=== PATIENT | female | born 1935 | race Caucasian/White ===

== ENCOUNTER 2017-04-19 08:12 | Emergency (ER) | payer MEDICARE, BC ==
[2017-04-19] MEDS ORDERED: 0.9 % SODIUM CHLORIDE 1,000 ML BAG IV ONE (08:51)
[2017-04-19] MEDS ORDERED: ONDANSETRON HCL IV 4 MG/2 ML VIAL IVP ONE (08:52)
--- NOTE | 2017-04-19 08:56 | Emergency Department Record ---
History of Present Illness - General Chief Complaint: Abdominal Pain Stated Complaint: ABD PAIN Time Seen by Provider: 04/19/17 08:51 Source: Patient, Family Mode of Arrival: Ambulatory Limitations: No limitations - History of Present Illness Initial Comments: 81 yo female presents with abdominal bloating, pain, mucous like stools. She states she has a history of diverticulosis with prior episodes of diverticulitis. She has a history of liver transplant in early 2003. She moved from [place] in November and has not seen a doctor in [place] yet. Her [place] physician has a standing order for Cipro for symptoms like this. She took a 10 day course but is not improving. No fevers. No blood in the stools. She has a new PCP appointment in late April as well as GI in April. MD Complaint: Abdominal pain Onset/Timin -: Days(s) Location: Diffuse Radiation: None Migration to: No migration Severity: Moderate Quality: Aching, Cramping Consistency: Constant Improves With: Nothing Worsens With: Nothing Context: Other Associated Symptoms: Nausea - Related Data Patient : No Home Medications Medication Instructions Recorded Confirmed Last Taken Amlodipine Besylate/Benazepril 5 mg PO DAILY 04/19/17 04/19/17 Unknown [Amlodipine-Benazepril 5-20 mg] Levothyroxine Sodium 25 mcg PO DAILY 04/19/17 04/19/17 Unknown Metoprolol Succinate [Toprol Xl] 25 mg PO DAILY 04/19/17 04/19/17 Unknown Prednisone [Prednisone] 2.5 mg PO DAILY 04/19/17 04/19/17 Unknown Tacrolimus [Prograf] 1 mg PO TID 04/19/17 04/19/17 Unknown Allergies Allergy/AdvReac Type Severity Reaction Status Date / Time ibuprofen [From Motrin] Allergy HYPERSENSIT Verified 04/19/17 08:32 IVITY NSAIDS (Non-Steroidal Allergy HYPERSENSIT Verified 04/19/17 08:32 Anti-Inflamma IVITY Travel Screening - Travel/Exposure Within Last 30 Days Have you traveled within the last 30 days?: No Review of Systems Constitutional: Denies: Chills, Fever, Malaise, Weakness Eyes: Denies: Eye discharge, Eye pain, Photophobia, Vision change ENT: Denies: Congestion, Throat pain Respiratory: Reports: Cough. Denies: Dyspnea, Hemoptysis, Stridor, Wheezes Cardiovascular: Denies: Chest pain, Palpitations, Syncope Endocrine: Denies: Fatigue, Polydipsia, Polyuria Gastrointestinal: Reports: Abdominal pain (bloating feeling), Diarrhea (mucous like stools that are improving), Nausea. Denies: Vomiting Genitourinary: Denies: Dysuria, Hematuria, Incontinence, Retention, Urgency Musculoskeletal: Denies: Arthralgia, Back pain, Joint swelling, Myalgia Skin: Denies: Bruising, Change in color, Rash Neurological: Denies: Headache, Numbness, Weakness Psychiatric: Denies: Anxiety Hematological/Lymphatic: Denies: Blood Clots, Easy bleeding, Easy bruising, Swollen glands Past Medical History - SOCIAL HISTORY Smoking Status: Never smoker Alcohol Use: None Drug Use: None - RESPIRATORY Hx Respiratory Disorders: No - CARDIOVASCULAR Hx Cardio Disorders: No - NEURO Hx Neuro Disorders: No - GI Hx GI Disorders: Yes Hx Diverticulitis: Yes Hx Hiatal Hernia: Yes Hx Liver Disease: Yes (transplant) - Hx Genitourinary Disorders: No - ENDOCRINE Hx Endocrine Disorders: Yes Hx Thyroid Disease: Yes - MUSCULOSKELETAL Hx Musculoskeletal Disorders: Yes Hx Arthritis: Yes - PSYCH Hx Psych Problems: No - HEMATOLOGY/ONCOLOGY Hx Hematology/Oncology Disorders: Yes Hx Cancer: Yes (cancer) Hx Chemotherapy: No Hx Radiation Therapy: No Family Medical History Any Significant Family History?: No Physical Exam - General General Appearance: Alert, Oriented x3, Cooperative, No acute distress Limitations: No limitations - Head Head exam: Atraumatic, Normal inspection - Eye Eye exam: Normal appearance. negative: Conjunctival injection, Scleral icterus - ENT ENT exam: Normal exam, Mucous membranes moist Ear exam: Normal external inspection Nasal Exam: Normal inspection Mouth exam: Normal external inspection Teeth exam: Normal inspection Throat exam: Normal inspection - Neck Neck exam: Normal inspection, Full ROM. negative: Tenderness - Respiratory Respiratory exam: Normal lung sounds bilaterally. negative: Respiratory distress - Cardiovascular Cardiovascular Exam: Regular rate, Normal rhythm, Normal heart sounds Peripheral Pulses: 2+: Radial (R), Radial (L) - GI/Abdominal GI/Abdominal exam: Soft, Normal bowel sounds. negative: Distended, Guarding, Rebound, Rigid, Tenderness - Rectal Rectal exam: Deferred - exam: Deferred - Extremities Extremities exam: Normal inspection, Full ROM, Normal capillary refill. negative: Tenderness - Back Back exam: Reports: Normal inspection, Full ROM. Denies: Muscle spasm, Rash noted, Tenderness - Neurological Neurological exam: Alert, Normal gait, Oriented X3 - Psychiatric Psychiatric exam: Normal affect, Normal mood - Skin Skin exam: Dry, Intact, Normal color, Warm Course Vital Signs 04/19/17 08:22 Temperature 98.1 F Pulse Rate 78 Respiratory 20 Rate Blood Pressure 162/97 Pulse Ox 97 - Reevaluation(s) Reevaluation #1: 04/19/17 09:23 No acute changes on the CBC, CMP or Lipase 04/19/17 10:40 No acute changes on the UA The patient is transported for CT due to [facility] CT not available 04/19/17 12:[address] scan report was reviewed: Impression prominent varices suggest portal HTN , mild splenomegaly, Mild to Moderate right HN without obstruction or stone, bladder distended. NO diverticulitis. 04/19/17 13:10 The report was given to the patient She will be referred to urology for the right sided findings. We discussed follow up and reasons to return sooner Medical Decision Making - Lab Data Result diagrams: 04/19/17 08:05 04/19/17 08:05 Disposition Disposition: Discharge Disposition: Home, Self-Care Condition: (1) Good Instructions: Hydronephrosis (ED) Additional Instructions: Return to the ER if you have fever, pain, or vomiting You are being referred to Dr Izaguirre of urology for the right sided hydronephrosis on the CT scan Referrals: SALMA IZAGUIRRE M.D. [MEDICAL DOCTOR] - [facility] Specialty Clin[facility] [Provider Group] Forms: Patient Portal Access Time of Disposition: 13:14 Quality - Quality Measures Quality Measures: N/A - Blood Pressure Screening Does Patient Have Any of the Following: Active Dx of HTN Blood Pressure Classification: Hypertensive Reading Systolic Measurement: 162 Diastolic Measurement: 97 Screening for High Blood Pressure: Patient Exclusion, Hx of HTN [G9744]
[2017-04-19 08:59] LABS: BASO % 0.2 % (0-6); EOS % 2.5 % (0-6); GRAN % 68.6 % (47-80); HEMATOCRIT 40.2 % (35.0-47.0); HEMOGLOBIN 13.1 gm/dl (11.6-16.0); LYMPH % 18.1 % (16-45); MEAN CELL VOLUME 83.1 fl (81-97); MEAN CORPUSCULAR HEMOGLOBIN 27.1 pg (27-33); MEAN CORPUSCULAR HGB CONC 32.6 g/dl (32-36); MEAN PLATELET VOLUME 9.6 fl (7.4-10.4); MONO % 10.6 % (0-9); PLATELET COUNT 143 K/uL (130-400); RED BLOOD COUNT 4.84 M/uL (3.80-5.40); RED CELL DISTRIBUTION WIDTH 14.1 % (11.5-14.5); WHITE BLOOD COUNT W/O DIFF 5.3 K/uL (4.2-12.2)
[2017-04-19 09:22] LABS: ALBUMIN 4.6 g/dL (4.0-5.0); ALKALINE PHOSPHATASE 67 U/L (35-104); ALT/SGPT 17 U/L (<33); AST/SGOT 21 U/L (10.0-35.0); BILIRUBIN,DIRECT < 0.2 mg/dL (0-0.3); BLOOD UREA NITROGEN 28 mg/dL (8-23); CREATININE 0.8 mg/dL (0.5-0.9); EST GLOMERULAR FILTRATION RATE > 60 mL/min; GLUCOSE,RANDOM 121 mg/dL (74-109); LIPASE 23 U/L (13-60); TOTAL PROTEIN 7.5 g/dL (6.6-8.7)
[2017-04-19 09:33] LABS: PARTIAL THROMBOPLASTIN TIME 29.6 SECONDS (24.5-39.1); PROTHROMBIN TIME (PATIENT) 10.6 SECONDS (9.5-12.1)
[2017-04-19 10:08] LABS: URINE APPEARANCE CLEAR; URINE BILIRUBIN NEGATIVE (NEGATIVE); URINE BLOOD TRACE-I (NEGATIVE); URINE COLOR YELLOW; URINE GLUCOSE (UA) NEGATIVE (NEGATIVE); URINE KETONE NEGATIVE (NEGATIVE); URINE LEUKOCYTE ESTERASE NEGATIVE (NEGATIVE); URINE NITRITE NEGATIVE (NEGATIVE); URINE PROTEIN NEGATIVE (NEGATIVE); URINE UROBILINOGEN 0.2 E.U./dL (0.20 - 1.00)
[2017-04-19 10:20] LABS: URINE RBC 0 - 3 (NONE SEEN)
[2017-04-19 10:21] LABS: URINE BACTERIA NONE SEEN; URINE EPITHELIAL CELLS 0 - 2 (FEW); URINE WBC 0 - 2 (0-2/hpf)
== END 2017-04-19 13:48 | disposition home or self-care (01) ==
LOC: ER 08:12
DX: N13.30 Unspecified hydronephrosis (principal); R14.0 Abdominal distension (gaseous); R11.0 Nausea; Z94.4 Liver transplant status
CPT/HCPCS: 80048; 80076; 81001; 83690; 85025; 85610; 85730; 96374; 99284; J2405; J7030

== ENCOUNTER 2017-12-16 09:12 | Emergency (ER) | payer MEDICARE, BC ==
--- NOTE | 2017-12-16 09:22 | Emergency Department Record ---
History of Present Illness - General Stated Complaint: FELL BACK PAIN UPPER Time Seen by Provider: 12/16/17 09:14 Source: Patient Mode of Arrival: Ambulatory Limitations: No limitations - History of Present Illness Initial Comments: 82 yo female presents after a fall. She slipped on one step leaving her house. The injury occurred one hour ago. She hit her mid upper back. No head injury , no neck pain, abdominal pain, extremity pain. She has pain with taking a deep breath. No anti-coagulants. She states has has a Motrin allergy and she does not take Tylenol due to a 2004 liver transplant. She is declining pain medication at this time. Dr Siu is her PCP and Dr Yao is her GI. The transplant was in [place]. She no longer sees that doctor. MD Complaint: Fall -: Hour(s) (1) Fall From: Down stairs (#) (1) When Fall Occurred: 1 hour [employer] Fall Witnessed: No Place Fall Occurred: Home Loss of Consciousness: None Prolonged Down Time?: No Symptoms Prior to Fall: None Location: Back Quality: Aching Context: Other Associated Symptoms: Shortness of breath (Hurts to breath) - [place] Coma Scale Eye Response: (4) Open spontaneously Motor Response: (6) Obeys commands Verbal Response: (5) Oriented [place] Total: 15 - Related Data Allergies Allergy/AdvReac Type Severity Reaction Status Date / Time ibuprofen [From Motrin] Allergy HYPERSENSIT Verified 04/19/17 08:32 IVITY NSAIDS (Non-Steroidal Allergy HYPERSENSIT Verified 04/19/17 08:32 Anti-Inflamma IVITY Review of Systems Constitutional: Denies: Chills, Fever, Malaise, Weakness Eyes: Denies: Eye discharge ENT: Denies: Congestion, Throat pain Respiratory: Denies: Cough Cardiovascular: Reports: Dyspnea on exertion. Denies: Chest pain, Palpitations , Syncope Endocrine: Denies: Fatigue, Polydipsia, Polyuria Gastrointestinal: Denies: Abdominal pain, Diarrhea, Nausea, Vomiting Genitourinary: Denies: Dysuria Musculoskeletal: Reports: Back pain. Denies: Arthralgia, Joint swelling, Myalgia, Neck pain Skin: Denies: Bruising, Change in color, Rash Neurological: Denies: Headache Psychiatric: Denies: Anxiety Hematological/Lymphatic: Denies: Easy bleeding, Easy bruising Past Medical History - SOCIAL HISTORY Smoking Status: Never smoker - RESPIRATORY Hx Respiratory Disorders: No - CARDIOVASCULAR Hx Cardio Disorders: No - NEURO Hx Neuro Disorders: No - GI Hx GI Disorders: Yes Hx Diverticulitis: Yes Hx Hiatal Hernia: Yes Hx Liver Disease: Yes (transplant) - Hx Genitourinary Disorders: No - ENDOCRINE Hx Endocrine Disorders: Yes Hx Thyroid Disease: Yes - MUSCULOSKELETAL Hx Musculoskeletal Disorders: Yes Hx Arthritis: Yes - PSYCH Hx Psych Problems: No - HEMATOLOGY/ONCOLOGY Hx Hematology/Oncology Disorders: Yes Hx Cancer: Yes (cancer) Hx Chemotherapy: No Hx Radiation Therapy: No Physical Exam - General General Appearance: Alert, Oriented x3, Cooperative, No acute distress Limitations: No limitations - Head Head exam: Atraumatic, Normocephalic, Normal inspection - Eye Eye exam: Normal appearance, PERRL. negative: Conjunctival injection, Scleral icterus - ENT ENT exam: Normal exam, Mucous membranes moist, Normal orophraynx. negative: Mucous membranes dry Ear exam: Normal external inspection Nasal Exam: Normal inspection Mouth exam: Normal external inspection Throat exam: Normal inspection - Neck Neck exam: Normal inspection, Full ROM. negative: Lymphadenopathy, Meningismus , Tenderness - Respiratory Respiratory exam: Normal lung sounds bilaterally, Chest wall tenderness. negative: Accessory muscle use, Decreased breath sounds, Prolonged expiratory, Rales, Respiratory distress, Rhonchi, Wheezes - Cardiovascular Cardiovascular Exam: Regular rate, Normal rhythm, Normal heart sounds Peripheral Pulses: 2+: Radial (R), Radial (L) - GI/Abdominal GI/Abdominal exam: Soft. negative: Tenderness - Rectal Rectal exam: Deferred - exam: Deferred - Extremities Extremities exam: Normal inspection, Full ROM, Normal capillary refill. negative: Calf tenderness, Joint swelling, Pedal edema, Tenderness Image of Full Body: 1 - tenderness to palpation, normal inspection - Back Back exam: Reports: Normal inspection. Denies: CVA tenderness (R), CVA tenderness (L) - Neurological Neurological exam: Alert, Oriented X3 - Psychiatric Psychiatric exam: Normal affect, Normal mood. negative: Agitated, Anxious - Skin Skin exam: Dry, Intact, Normal color, Warm Course - Reevaluation(s) Reevaluation #1: The vitals were reviewed. No tachycardia or hypoxia. The patient declined pain medication at this time She did ambulate without limitation into the ED. She does not appear limited by pain with movement or breathing. 12/16/17 09:27 12/16/17 09:29 EKG EKG #1: 0933 Rate: 65 Rhythm: sinus [place]: normal Intervals: normal ST segments: normal Normal EKG Prior: none 12/16/17 09:36 12/16/17 09:57 No acute significant changes on the CBC 12/16/17 10:17 The CMP did not have any significant abnormalities. 12/16/17 10:[address] scan was read an age indeterminate mild compression fracture of T4 with 2mm of retropusion of the superior posterior aspect. 12/16/17 10:55 The patient was informed on the CT results of mild compression with 2mm retropulsed area. Her pain is still mild and declines pain medication. She is unaware of prior compression fractures. I informed her this then could be new. I recommended calling for spine surgery follow up, possible transfer or admission. She declined. She states her pain is mild and does not want to go to a spine doctor at this time. I recommended calling her PCP at least to discuss the case first. She does agree to this. 12/16/17 11:08 I discussed the case with Dr Siu. He states she has a history of all normal hepatic function and she may take Tylenol for pain. The patient was informed. Dr Siu refers to Dr Baptiste for spine. The patient agrees to allow me to contact him as well. 12/16/17 11:11 12/16/17 11:31 The patient again stresses under NO circumstances will she be admitted, transferred or plans other that DC home now. I again explained her CT and that I recommend talking with spine surgery. She is unwilling to wait any longer. She understands risks of nerve injury, worse or uncontrolled pain. I discussed signing out AMA given my recommendations without followup established prior to her wish to leave. 12/16/17 11:[address] copy was provided. She was informed she may return anytime for evaluation. She is to call Dr Siu tomorrow. She was given Dr Baptiste's information. I will speak to him when he calls back. The patient has had all her questions answered and she still as determined to sign out AMA. Medical Decision Making - Lab Data Result diagrams: 12/16/17 09:37 12/16/17 09:37 Disposition Disposition: Other Clinical Impression: Compression fracture of body of thoracic vertebra Contusion, back Qualifiers: Encounter type: initial encounter Laterality: unspecified laterality Qualified Code(s): S20.229A - Contusion of unspecified back wall of thorax, initial encounter Disposition: Against Medical Advice Condition: (1) Good Instructions: Vertebral Compression Fracture (ED), Against Medical Advice (ED) Additional Instructions: Call your family doctor today. Call to schedule the next available appointment for a recheck of your back Return to ED if your symptoms worsen or if you have any new concerns. Review the final Emergency Record and test results with your doctor on follow up Take a copy of your CT scan with you to your appointments. Referrals: BRANDI BAPTISTE [DOCTOR OF OSTEOPATH] - Forms: Patient Portal Access Time of Disposition: 11:12 Quality - Quality Measures Quality Measures: N/A - Blood Pressure Screening Does Patient Have Any of the Following: No Blood Pressure Classification: Pre-Hypertensive BP Reading Systolic Measurement: 185 Diastolic Measurement: 84 Screening for High Blood Pressure: < Pre-Hypertensive BP, F/U Documented > [ G8950] Pre-Hypertensive Follow-up Interventions: Referral to alternative/primary care provider.
[2017-12-16 09:42] LABS: BASO % 0.2 % (0-6); EOS % 2.1 % (0-6); GRAN % 65.7 % (47-80); HEMATOCRIT 40.6 % (35.0-47.0); HEMOGLOBIN 12.9 gm/dl (11.6-16.0); MEAN CELL VOLUME 85.5 fl (81-97); MEAN CORPUSCULAR HEMOGLOBIN 27.2 pg (27-33); MEAN CORPUSCULAR HGB CONC 31.8 g/dl (32-36); MEAN PLATELET VOLUME 9.5 fl (7.4-10.4); PLATELET COUNT 145 K/uL (130-400); RED BLOOD COUNT 4.75 M/uL (3.80-5.40); RED CELL DISTRIBUTION WIDTH 13.8 % (11.5-14.5); WHITE BLOOD COUNT W/O DIFF 5.3 K/uL (4.2-12.2)
[2017-12-16 09:52] LABS: BLOOD UREA NITROGEN 30 mg/dL (8-23); CREATININE 0.9 mg/dL (0.5-0.9); EST GLOMERULAR FILTRATION RATE > 60 mL/min
[2017-12-16 09:53] LABS: TOTAL PROTEIN 7.1 g/dL (6.6-8.7)
[2017-12-16 09:55] LABS: GLUCOSE,RANDOM 127 mg/dL (74-109)
[2017-12-16 09:58] LABS: ALB/GLOB RATIO 1.7 (1.1-1.8); ALBUMIN 4.5 g/dL (4.0-5.0); ALKALINE PHOSPHATASE 63 U/L (35-104); ALT/SGPT 13 U/L (<33); AST/SGOT 17 U/L (10.0-35.0)
[2017-12-16] MEDS ORDERED: ACETAMINOPHEN 500 MG TABLET PO ONE (11:09)
--- NOTE | 2017-12-17 12:34 | CT SCAN REPORT ---
EXAM: CT SCAN OF THE CHEST WITHOUT CONTRAST WITH POST PROCESSING HISTORY: PATIENT SLIPPED AND FELL ON DECK, HITTING MID BACK WITH MID BACK PAIN. TECHNIQUE: Axial CT scan of the chest was performed without IV contrast. Post processing on an independent workstation was performed with multiple 3D volume rendered as well as 2D multiplanar reformatted series obtained. FINDINGS: No pneumothorax is evident. There is some minor dependent atelectasis in the lungs posteriorly. There is some small nodules bilaterally in the thyroid measuring about 6.6 mm in size on the right and probably about 11 mm in size on the left. Correlation with physical exam suggested and a follow-up nonemergent thyroid ultrasound might be useful for further assessment. 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 Some coronary artery calcification is seen. No pleural or pericardial effusion evident. Postop cholecystectomy. There are also a couple surgical clips along the inferior aspect of the right side of the heart. There is also a history of liver transplant and this is probably related to the transplant with a prominent vessel seen in this region also likely related to the transplant. Small hiatal hernia. There are some small pleural plaques in the right apical region containing some calcification. This is nonspecific although can be seen with prior asbestos exposure. There is mild compression of the body of T4. There is no associated paraspinal hematoma and the age of this is uncertain. Comparison with any prior CT scans or even chest or spine plain film x-rays that include the thoracic spine particularly in the lateral projection would be useful in this regard. Very slight retropulsion of the posterior margin of the T4 vertebra by only approximately 2 mm. IMPRESSION: 1. NO PNEUMOTHORAX OR PULMONARY CONTUSION IDENTIFIED. MINOR DEPENDENT ATELECTASIS POSTERIORLY IN THE LUNGS. 2. CORONARY ARTERY CALCIFICATION. 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 3. THERE IS MILD COMPRESSION IN THE BODY OF T4 WITH ABOUT 2 MM OF RETROPULSION OF THE POSTERIOR MARGIN IN THE BODY OF T4. THIS IS OF UNCERTAIN AGE WITH NO OBVIOUS ASSOCIATED PARASPINAL HEMATOMA TODAY. 4. BILATERAL THYROID NODULES ABOUT 11 MM IN SIZE ON THE LEFT AND 6.6 MM ON THE RIGHT. FOLLOW-UP THYROID ULTRASOUND MIGHT BE USEFUL. 5. POSTOP CHOLECYSTECTOMY. HISTORY OF LIVER TRANSPLANT WELL WITH SURGICAL CLIPS ALONG THE INFERIOR ASPECT OF THE HEART ON THE RIGHT PROBABLY RELATED TO THE TRANSPLANT. JOB NUMBER: [id number] [facility]
== END 2017-12-16 11:43 | disposition left against medical advice (07) ==
LOC: ER 09:12
DX: S22.049A Unspecified fracture of fourth thoracic vertebra, initial encounter for closed fracture (principal); S20.229A Contusion of unspecified back wall of thorax, initial encounter; R07.89 Other chest pain; R06.02 Shortness of breath; W01.198A Fall on same level from slipping, tripping and stumbling with subsequent striking against other object, initial encounter; Y92.009 Unspecified place in unspecified non-institutional (private) residence as the place of occurrence of the external cause; Z94.4 Liver transplant status
CPT/HCPCS: 71250; 80053; 85025; 99284

== ENCOUNTER 2018-03-23 00:58 | Emergency (ER) | payer MEDICARE, BC ==
[2018-03-23] MEDS ORDERED: MORPHINE SULFATE 10 MG/ML VIAL IVP ONE (01:04)
[2018-03-23] MEDS ORDERED: ONDANSETRON HCL IV 4 MG/2 ML VIAL IVP ONE (01:04)
--- NOTE | 2018-03-23 01:09 | Emergency Department Record ---
History of Present Illness - General Chief Complaint: Abdominal Pain Stated Complaint: ABD PAIN Time Seen by Provider: 03/23/18 01:04 Source: Patient Mode of Arrival: Ambulatory Limitations: No limitations - History of Present Illness Initial Comments: 82 yo female presents to ED for evaluation of diffuse abdominal pain symtpoms. Patient reports a history of diverticulitis, was recently started on Cipro by her PCP for a flare-up that began 1 week ago. Patient reports using numerous laxatives and stool softeners to "clean herself out", reports increased pain and distention tonight. Patient also reports a history of liver transplantation in 2003 in [place], denies complications following her transplant. MD Complaint: Abdominal pain Onset/Timin -: Days(s) Location: Diffuse Radiation: None Severity: Moderate Quality: Aching Consistency: Constant Improves With: Nothing Worsens With: Nothing Associated Symptoms: Constipation - Related Data Patient : No Allergies Allergy/AdvReac Type Severity Reaction Status Date / Time ibuprofen [From Motrin] Allergy HYPERSENSIT Verified 04/19/17 08:32 IVITY NSAIDS (Non-Steroidal Allergy HYPERSENSIT Verified 04/19/17 08:32 Anti-Inflamma IVITY Review of Systems Constitutional: Denies: Chills, Fever, Malaise, Night sweats Eyes: Denies: Eye discharge, Eye pain ENT: Denies: Congestion, Ear pain, Epistaxis Respiratory: Denies: Cough, Dyspnea Cardiovascular: Denies: Chest pain, Dyspnea on exertion Endocrine: Denies: Fatigue, Heat or cold intolerance Gastrointestinal: Reports: Abdominal pain, Nausea. Denies: Vomiting Genitourinary: Denies: Incontinence, Retention Musculoskeletal: Denies: Arthralgia, Back pain Skin: Denies: Bruising, Change in color, Change in hair/nails Neurological: Denies: Abnormal gait, Confusion, Headache, Seizure Psychiatric: Denies: Anxiety Hematological/Lymphatic: Denies: Anemia, Blood Clots Past Medical History - SOCIAL HISTORY Smoking Status: Never smoker - RESPIRATORY Hx Respiratory Disorders: No - CARDIOVASCULAR Hx Cardio Disorders: No - NEURO Hx Neuro Disorders: No - GI Hx GI Disorders: Yes Hx Diverticulitis: Yes Hx Hiatal Hernia: Yes Hx Liver Disease: Yes (transplant) - Hx Genitourinary Disorders: No - ENDOCRINE Hx Endocrine Disorders: Yes Hx Thyroid Disease: Yes - MUSCULOSKELETAL Hx Musculoskeletal Disorders: Yes Hx Arthritis: Yes - PSYCH Hx Psych Problems: No - HEMATOLOGY/ONCOLOGY Hx Hematology/Oncology Disorders: Yes Hx Cancer: Yes (cancer) Hx Chemotherapy: No Hx Radiation Therapy: No Physical Exam - General General Appearance: Alert, Oriented x3, Cooperative, Moderate distress Limitations: No limitations - Head Head exam: Atraumatic, Normocephalic, Normal inspection Head exam detail: negative: Abrasion, Contusion, Ro's sign, General tenderness, Hematoma, Laceration - Eye Eye exam: Normal appearance. negative: Conjunctival injection, Periorbital swelling, Periorbital tenderness, Scleral icterus - ENT Ear exam: negative: Auricular hematoma, Auricular trauma Nasal Exam: negative: Active bleeding, Discharge, Dried blood, Foreign body Mouth exam: negative: Drooling, Laceration, Muffled voice, Tongue elevation - Neck Neck exam: Normal inspection. negative: Meningismus, Tenderness - Respiratory Respiratory exam: Normal lung sounds bilaterally. negative: Rales, Respiratory distress, Rhonchi, Stridor - Cardiovascular Cardiovascular Exam: Regular rate, Normal rhythm, Normal heart sounds - GI/Abdominal GI/Abdominal exam: Soft, Distended, Tenderness (Diffuse TTP, distention present. ). negative: Rebound, Rigid - Rectal Rectal exam: Deferred - exam: Deferred - Extremities Extremities exam: Normal inspection. negative: Pedal edema, Tenderness - Back Back exam: Denies: CVA tenderness (R), CVA tenderness (L) - Neurological Neurological exam: Alert, Normal gait, Oriented X3 - Psychiatric Psychiatric exam: Normal affect, Normal mood - Skin Skin exam: Normal color. 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 Reevaluation #3: 03/23/18 03:13 2nd call placed to [facility], they have paged general surgery x 2, will try once more before contacting colo-rectal surgery for consultation. Reevaluation #4: 03/23/18 03:45 Case was discussed with Dr. Garland ([place]-rectal specialist at [facility]), recommends transfer to transplant center. [facility], [facility] Will initiate transfer. Medical Decision Making - Lab Data Result diagrams: 03/23/18 01:10 03/23/18 01:10 Disposition Disposition: Transfer Clinical Impression: SBO (small bowel obstruction), Colonic mass Disposition: Acute Care Hospital Transfer Transfer To: [facility] Reason For Transfer: Surgical consultation Accepting Physician: Busschots Time Discussed w/Accepting Physician: 03:46 Condition: (2) Stable Forms: Patient Portal Access Time of Disposition: 03:46 Quality - Quality Measures Quality Measures: N/A - Blood Pressure Screening Does Patient Have Any of the Following: No Blood Pressure Classification: Pre-Hypertensive BP Reading Systolic Measurement: 122 Diastolic Measurement: 61 Screening for High Blood Pressure: < Pre-Hypertensive BP, F/U Documented > [ G8950] Pre-Hypertensive Follow-up Interventions: Referral to alternative/primary care provider.
[2018-03-23 01:18] LABS: BASO % 0.3 % (0-6); EOS % 1.1 % (0-6); GRAN % 71.2 % (47-80); HEMATOCRIT 41.5 % (35.0-47.0); HEMOGLOBIN 13.3 gm/dl (11.6-16.0); LYMPH % 16.9 % (16-45); MEAN CELL VOLUME 83.5 fl (81-97); MEAN CORPUSCULAR HEMOGLOBIN 26.8 pg (27-33); MONO % 10.5 % (0-9); PLATELET COUNT 189 K/uL (130-400); RED BLOOD COUNT 4.97 M/uL (3.80-5.40); RED CELL DISTRIBUTION WIDTH 13.6 % (11.5-14.5); WHITE BLOOD COUNT W/O DIFF 8.9 K/uL (4.2-12.2)
[2018-03-23 01:29] LABS: BILIRUBIN,TOTAL 0.5 mg/dL (0.2-1.0); CREATININE 1.2 mg/dL (0.5-0.9); TOTAL PROTEIN 7.7 g/dL (6.6-8.7)
[2018-03-23 01:34] LABS: ALB/GLOB RATIO 1.5 (1.1-1.8); ALBUMIN 4.6 g/dL (4.0-5.0)
[2018-03-23] MEDS ORDERED: 0.9 % SODIUM CHLORIDE 1000ML 500 ML IV SCH (01:45)
--- NOTE | 2018-03-24 09:43 | CT SCAN REPORT ---
EXAM: CT OF THE ABDOMEN AND PELVIS WITHOUT CONTRAST HISTORY: MID ABDOMINAL PAIN, PALPABLE RIGHT ABDOMINAL LUMP. PATIENT HAS A HISTORY OF LIVER TRANSPLANT IN 2004 AND COMPLETE HYSTERECTOMY. TECHNIQUE: Noncontrast CT of the abdomen and pelvis was obtained. Comparison: CT of the abdomen and pelvis with contrast 10/07/17. FINDINGS: No significant opacities in the visualized lung bases. Coronary artery calcifications are noted. Small hiatal hernia. Esophageal varices. Unremarkable noncontrast appearance of the liver. The gallbladder appears surgically absent. 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 The spleen is enlarged, measuring up to 14 cm in craniocaudal dimension. The adrenal glands are unremarkable. Unremarkable appearance of the pancreas. No hydronephrosis. No renal calculi detected. Likely tiny left renal cortical cysts. Aortoiliac arterial access is calcified , nondilated. New enlarged retroperitoneal lymph nodes, the largest measuring 1.5 cm in short axis in the left periaortic region (series 3 image 67). New soft tissue density pericecal mass measuring approximately 5.5 x 5.0 x 6.2 cm (AP x TV x CC). New enlarged 8 mm right lower quadrant mesenteric lymph node (series 3 image 103). Mildly dilated small bowel loops in the lower abdomen measuring up to 3.2 cm in diameter with suggestion of a lead point at the level of the soft tissue mass. Colonic diverticulosis predominantly involving the descending sigmoid colon. No evidence of acute diverticulitis. Prominent stool ball in the sigmoid colon. No free air. Trace free fluid in the right lower abdominal quadrant near the level of the mass. No definite acute osseous findings or aggressive focal bone lesions. IMPRESSION: 1. NEW RIGHT LOWER QUADRANT PERICECAL SOFT TISSUE MASS MEASURING UP TO 6.2 CM. 2. MILDLY DILATED SMALL BOWEL LOOPS IN THE LOWER ABDOMEN CONCERNING FOR SMALL BOWEL OBSTRUCTION WITH A LIKELY TRANSITION POINT AT THE LEVEL OF THE RIGHT LOWER QUADRANT SOFT TISSUE MASS. 3. NEWLY ENLARGED RETROPERITONEAL AND RIGHT LOWER QUADRANT MESENTERIC LYMPH NODES. 4. GASTROSPLENIC AND ESOPHAGEAL VARICES. 5. SPLENOMEGALY. 6. COLONIC DIVERTICULOSIS WITHOUT EVIDENCE OF ACUTE DIVERTICULITIS. JOB [facility]BER: [id number] [facility]
== END 2018-03-23 04:15 | disposition short-term general hospital (02) ==
LOC: ER 00:58
DX: K56.609 Unspecified intestinal obstruction, unspecified as to partial versus complete obstruction (principal); R19.03 Right lower quadrant abdominal swelling, mass and lump; Z94.4 Liver transplant status
CPT/HCPCS: 74176; 80053; 83690; 85025; 96361; 96374; 96375; 99284; J2270; J2405; J7030

== ENCOUNTER 2018-05-24 06:57 | Emergency (ER) | payer MEDICARE, BC ==
[2018-05-24] MEDS ORDERED: ONDANSETRON HCL IV 4 MG/2 ML VIAL IVP ONE (07:28)
[2018-05-24 07:33] LABS: HEMATOCRIT 36.8 % (35.0-47.0); HEMOGLOBIN 11.5 gm/dl (11.6-16.0); MEAN CELL VOLUME 81.8 fl (81-97); MEAN CORPUSCULAR HGB CONC 31.3 g/dl (32-36); MEAN PLATELET VOLUME 9.7 fl (7.4-10.4); PLATELET COUNT 167 K/uL (130-400)
[2018-05-24 07:36] LABS: MEAN CORPUSCULAR HEMOGLOBIN 25.5 pg (27-33); WHITE BLOOD COUNT W/O DIFF 22.3 K/uL (4.2-12.2)
[2018-05-24 07:42] LABS: BLOOD UREA NITROGEN 29 mg/dL (8-23); CREATININE 0.8 mg/dL (0.5-0.9); EST GLOMERULAR FILTRATION RATE > 60 mL/min
[2018-05-24 07:43] LABS: TOTAL PROTEIN 5.8 g/dL (6.6-8.7)
[2018-05-24 07:45] LABS: GLUCOSE,RANDOM 182 mg/dL (74-109)
[2018-05-24 07:48] LABS: ALB/GLOB RATIO 1.8 (1.1-1.8); ALBUMIN 3.7 g/dL (4.0-5.0); ALKALINE PHOSPHATASE 51 U/L (35-104); ALT/SGPT 20 U/L (<33); AST/SGOT 12 U/L (10.0-35.0)
[2018-05-24 07:51] LABS: URINE APPEARANCE CLEAR; URINE BILIRUBIN NEGATIVE (NEGATIVE); URINE BLOOD NEGATIVE (NEGATIVE); URINE COLOR YELLOW; URINE GLUCOSE (UA) NEGATIVE (NEGATIVE); URINE KETONE NEGATIVE (NEGATIVE); URINE LEUKOCYTE ESTERASE TRACE (NEGATIVE); URINE NITRITE NEGATIVE (NEGATIVE); URINE PROTEIN TRACE (NEGATIVE); URINE UROBILINOGEN 0.2 E.U./dL (0.20 - 1.00)
[2018-05-24 07:59] LABS: URINE EPITHELIAL CELLS 0 - 2 (FEW); URINE RBC 0 - 2 (NONE SEEN); URINE WBC 0 - 2 (0-2/hpf)
[2018-05-24 08:00] LABS: URINE BACTERIA FEW
[2018-05-24 08:08] LABS: THYROID STIMULATING HORMONE 2.76 uIU/mL (0.270-4.20)
[2018-05-24] MEDS ORDERED: 0.9 % SODIUM CHLORIDE 1,000 ML BAG IV ONE ×2 (08:22→09:43)
--- NOTE | 2018-05-24 08:55 | Emergency Department Record ---
History of Present Illness - General Chief Complaint: Dizziness Stated Complaint: "MAYBE SEPTIC" Time Seen by Provider: 05/24/18 07:06 Source: Patient Mode of Arrival: Wheelchair Limitations: No limitations - History of Present Illness Initial Comments: pt is here c/o weakness and dizziness . she states she had a low temp of 95.8 at home and felt lightheaded when she stood up. she has no pain and no sob. she states her feet are swelling and her r leg has swelling. she had her 1st bout of chemo on wednesday for colon ca. she has a hx of liver transplant. she called the [facility] and they told her to go to ed because she might be septic or have a blood clot. MD Complaint: Dizziness, Lightheadedness Onset/Timin -: Days(s) Timing: Unsure Description: Lightheadedness, Other History of Same: No History of Trauma: No Severity: Moderate Improves With: Nothing Worsens With: Nothing Associated Symptoms: Other - Lisa Coma Scale Eye Response: (4) Open spontaneously Motor Response: (6) Obeys commands Verbal Response: (5) Oriented Lisa Total: 15 - Related Data Home Medications Medication Instructions Recorded Confirmed Last Taken Acyclovir 400 mg PO DAILY 05/24/18 05/24/18 Unknown Allopurinol 300 mg PO DAILY 05/24/18 05/24/18 Unknown Ergocalciferol (Vitamin D2) 50,000 mg PO WEEKLY 05/24/18 05/24/18 Unknown [Vitamin D2] Allergies Allergy/AdvReac Type Severity Reaction Status Date / Time ibuprofen [From Motrin] Allergy HYPERSENSIT Verified 04/19/17 08:32 IVITY NSAIDS (Non-Steroidal Allergy HYPERSENSIT Verified 04/19/17 08:32 Anti-Inflamma IVITY Travel Screening - Travel/Exposure Within Last 30 Days Have you traveled within the last 30 days?: No Review of Systems Reviewed: No additional complaints except as noted below Constitutional: Reports: As per HPI. Denies: Chills, Fever, Malaise, Night sweats, Weakness, Weight change Eyes: Reports: As per HPI. Denies: Eye discharge, Eye pain, Photophobia, Vision change ENT: Reports: As per HPI. Denies: Congestion, Dental pain, Ear pain, Epistaxis , Hearing loss, Throat pain Respiratory: Reports: As per HPI. Denies: Cough, Dyspnea, Hemoptysis, Stridor, Wheezes Cardiovascular: Reports: As per HPI. Denies: Arrhythmia, Chest pain, Dyspnea on exertion, Edema, Murmurs, Orthopnea, Palpitations, Paroxysmal nocturnal dyspnea, Rheumatic Fever, Syncope Endocrine: Reports: As per HPI. Denies: Fatigue, Heat or cold intolerance, Polydipsia, Polyuria Gastrointestinal: Reports: As per HPI. Denies: Abdominal pain, Constipation, Diarrhea, Hematemesis, Hematochezia, Melena, Nausea, Vomiting Genitourinary: Reports: As per HPI. Denies: Abnormal menses, Discharge, Dyspareunia, Dysuria, Frequency, Hematuria, Incontinence, Retention, Urgency Musculoskeletal: Reports: As per HPI. Denies: Arthralgia, Back pain, Gout, Joint swelling, Myalgia, Neck pain Skin: Reports: As per HPI. Denies: Bruising, Change in color, Change in hair/ nails, Lesions, Pruritus, Rash Neurological: Reports: As per HPI. Denies: Abnormal gait, Confusion, Headache, Numbness, Paresthesias, Seizure, Tingling, Tremors, Vertigo, Weakness Psychiatric: Reports: As per HPI. Denies: Anxiety, Auditory hallucinations, Depression, Homicidal thoughts, Suicidal thoughts, Visual hallucinations Hematological/Lymphatic: Reports: As per HPI. Denies: Anemia, Blood Clots, Easy bleeding, Easy bruising, Swollen glands Past Medical History - SOCIAL HISTORY Smoking Status: Never smoker Alcohol Use: None Drug Use: None - RESPIRATORY Hx Respiratory Disorders: No - CARDIOVASCULAR Hx Cardio Disorders: Yes Hx Hypertension: Yes - NEURO Hx Neuro Disorders: No - GI Hx GI Disorders: Yes Hx Diverticulitis: Yes Hx Hiatal Hernia: Yes Hx Liver Disease: Yes (transplant) - Hx Genitourinary Disorders: No - ENDOCRINE Hx Endocrine Disorders: Yes Hx Thyroid Disease: Yes - MUSCULOSKELETAL Hx Musculoskeletal Disorders: Yes Hx Arthritis: Yes - PSYCH Hx Psych Problems: No - HEMATOLOGY/ONCOLOGY Hx Hematology/Oncology Disorders: Yes Hx Cancer: Yes (cancer) Hx Chemotherapy: Yes Hx Radiation Therapy: No Family Medical History Any Significant Family History?: No Hx Heart Disease: Father Physical Exam - General General Appearance: Alert, Oriented x3, Cooperative, No acute distress - Head Head exam: Normal inspection - Eye Eye exam: Normal appearance, PERRL, EOMI Pupils: Normal accommodation - ENT ENT exam: Normal exam, Mucous membranes moist, Normal external ear exam, Normal orophraynx Ear exam: Normal external inspection. negative: External canal tenderness Nasal Exam: Normal inspection. negative: Discharge, Sinus tenderness Mouth exam: Normal external inspection, Tongue normal Teeth exam: Normal inspection. negative: Dental caries Throat exam: Normal inspection. negative: Tonsillar erythema, Tonsillar exudate - Neck Neck exam: Normal inspection, Full ROM. negative: Tenderness - Respiratory Respiratory exam: Normal lung sounds bilaterally. negative: Respiratory distress - Cardiovascular Cardiovascular Exam: Regular rate, Normal rhythm, Normal heart sounds - GI/Abdominal GI/Abdominal exam: Soft, Normal bowel sounds. negative: Tenderness - Rectal Rectal exam: Deferred - exam: Deferred - Extremities Extremities exam: Normal inspection, Full ROM, Normal capillary refill, Pedal edema. negative: Tenderness - Back Back exam: Reports: Normal inspection, Full ROM. Denies: Muscle spasm, Rash noted, Tenderness - Neurological Neurological exam: Alert, CN II-XII intact, Normal gait, Oriented X3 - Psychiatric Psychiatric exam: Normal affect, Normal mood - Skin Skin exam: Dry, Intact, Normal color, Warm Course Vital Signs 05/24/18 07:02 Temperature 97.7 F Pulse Rate [ 100 H Pulse Ox Probe] Respiratory 24 Rate Blood Pressure 163/100 [Left Arm] Pulse Ox 98 - Reevaluation(s) Reevaluation #1: 05/24/18 10:33 cxr shows atelectasis, doppler is neg Reevaluation #2: 05/24/18 10:35 pt has no cough, no sob, no fever. d/w dr fink who stated wbcs are high because of chemo and to not start abx at this time Medical Decision Making - Lab Data Result diagrams: 05/24/18 07:25 05/24/18 07:25 Lab Results 05/24/18 05/24/18 05/24/18 Range/Units 07:25 07:25 07:25 WBC 22.3 H* (4.2-12.2) K/uL RBC 4.50 (3.80-5.40) M/uL Hgb 11.5 L (11.6-16.0) gm/dl Hct 36.8 (35.0-47.0) % MCV 81.8 (81-97) fl MCH 25.5 L (27-33) pg MCHC 31.3 L (32-36) g/dl RDW 15.0 H (11.5-14.5) % Plt Count 167 (130-400) K/uL MPV 9.7 (7.4-10.4) fl Neutrophils % 97.0 H (47-80) % Eosinophils % Not Reportable Basophils % Not Reportable Lymphocytes 1.0 L (16-45) % Monocytes 2.0 (0-9) % Sodium 140 (136-145) mmol/L Potassium 3.2 L (3.4-4.5) mmol/L Chloride 100 (98-107) mmol/L Carbon Dioxide 24.0 (22-29) mmol/L Anion Gap 16.0 (7-16) BUN 29 H (8-23) mg/dL Creatinine 0.8 (0.5-0.9) mg/dL Estimated GFR > 60 mL/min Random Glucose 182 H (74-109) mg/dL Calcium 8.2 L (8.8-10.2) mg/dL Total Bilirubin 0.80 (0.2-1.0) mg/dL AST 12 (10.0-35.0) U/L ALT 20 (<33) U/L Alkaline Phosphatase 51 (35-104) U/L Troponin T < 0.010 (0-0.010) ng/mL NT-Pro-B Natriuret Pep 909.80 H (<450) pg/mL Total Protein 5.8 L (6.6-8.7) g/dL Albumin 3.7 L (4.0-5.0) g/dL Globulin 2.1 (1.4-4.8) gm/dL Albumin/Globulin Ratio 1.8 (1.1-1.8) TSH 2.76 (0.270-4.20) uIU/mL Urine Color Urine Appearance Urine pH (5.0-8.0) Ur Specific Stanton (1.002-1.030) Urine Protein (NEGATIVE) Urine Glucose (UA) (NEGATIVE) Urine Ketones (NEGATIVE) Urine Blood (NEGATIVE) Urine Nitrite (NEGATIVE) Urine Bilirubin (NEGATIVE) Urine Urobilinogen (0.20 - 1.00) E.U./dL Ur Leukocyte Esterase (NEGATIVE) Urine RBC (NONE SEEN) Urine WBC (0-2/hpf) Ur Epithelial Cells (FEW) Urine Bacteria 03/26/19 Range/Units 07:40 WBC (4.2-12.2) K/uL RBC (3.80-5.40) M/uL Hgb (11.6-16.0) gm/dl Hct (35.0-47.0) % MCV (81-97) fl MCH (27-33) pg MCHC (32-36) g/dl RDW (11.5-14.5) % Plt Count (130-400) K/uL MPV (7.4-10.4) fl Neutrophils % (47-80) % Eosinophils % Basophils % Lymphocytes (16-45) % Monocytes (0-9) % Sodium (136-145) mmol/L Potassium (3.4-4.5) mmol/L Chloride (98-107) mmol/L Carbon Dioxide (22-29) mmol/L Anion Gap (7-16) BUN (8-23) mg/dL Creatinine (0.5-0.9) mg/dL Estimated GFR mL/min Random Glucose (74-109) mg/dL Calcium (8.8-10.2) mg/dL Total Bilirubin (0.2-1.0) mg/dL AST (10.0-35.0) U/L ALT (<33) U/L Alkaline Phosphatase (35-104) U/L Troponin T (0-0.010) ng/mL NT-Pro-B Natriuret Pep (<450) pg/mL Total Protein (6.6-8.7) g/dL Albumin (4.0-5.0) g/dL Globulin (1.4-4.8) gm/dL Albumin/Globulin Ratio (1.1-1.8) TSH (0.270-4.20) uIU/mL Urine Color Yellow Urine Appearance Clear Urine pH 6.0 (5.0-8.0) Ur Specific Stanton 1.025 (1.002-1.030) Urine Protein Trace H (NEGATIVE) Urine Glucose (UA) Negative (NEGATIVE) Urine Ketones Negative (NEGATIVE) Urine Blood Negative (NEGATIVE) Urine Nitrite Negative (NEGATIVE) Urine Bilirubin Negative (NEGATIVE) Urine Urobilinogen 0.2 (0.20 - 1.00) E.U./dL Ur Leukocyte Esterase Trace H (NEGATIVE) Urine RBC 0 - 2 (NONE SEEN) Urine WBC 0 - 2 (0-2/hpf) Ur Epithelial Cells 0 - 2 (FEW) Urine Bacteria Few Disposition Disposition: Discharge Clinical Impression: Dehydration Disposition: Home, Self-Care Condition: (1) Good Instructions: Dehydration (ED) Additional Instructions: follow up with dr fink . return sooner if worse. push fluids Forms: Patient Portal Access Quality - Quality Measures Quality Measures: N/A - Blood Pressure Screening Does Patient Have Any of the Following: Active Dx of HTN Blood Pressure Classification: Hypertensive Reading Systolic Measurement: 150 Diastolic Measurement: 79 Screening for High Blood Pressure: Patient Exclusion, Hx of HTN [G9744]
[2018-05-24] MEDS ORDERED: POTASSIUM CHLORIDE 20 MEQ/15ML CUP PO ONE (09:46)
[2018-05-24] MEDS ORDERED: HEPARIN SODIUM FLUSH 100 UNITS/ML SYR 5ML IVP ONE (10:45)
--- NOTE | 2018-05-28 06:45 | US VENOUS DOPPLER REPORT ---
DATE: 05/24/2018. EXAM: LOWER EXTREMITY VENOUS DOPPLER ULTRASOUND OF THE RIGHT EXTREMITY. HISTORY: Right ankle swelling. A history of lymphoma. TECHNIQUE: Right lower extremity venous duplex ultrasound with assessment of venous compression augmentation and color flow. COMPARISON: None. FINDINGS: No evidence of thrombus involving the right external iliac vein, common femoral vein, proximal/mid/distal femoral, popliteal, gastrocnemius, posterior tibial, peroneal, or anterior tibial veins. No evidence of thrombus involving the left external iliac or common femoral vein. IMPRESSION: NO EVIDENCE OF RIGHT LOWER EXTREMITY DEEP VENOUS THROMBOSIS. Job Number: [id number] [facility]
--- NOTE | 2018-05-28 07:03 | RADIOLOGY REPORT ---
DATE: 05/24/2018. EXAM: TWO-VIEW CHEST RADIOGRAPH. HISTORY: Nausea, leg swelling, history of lymphoma. TECHNIQUE: Two views of the chest. COMPARISON: CT of the chest dated 12/16/2017. FINDINGS: Right-side port catheter with tip near the cavoatrial junction. Cardiac silhouette within normal size limits. The thoracic aorta is calcified and tortuous. Mild opacities in the right lung base. No pleural effusion or pneumothorax. IMPRESSION: MILD RIGHT BASILAR PULMONARY OPACITIES; MAY REPRESENT ATELECTASIS OR ACUTE AIRSPACE DISEASE SUCH PNEUMONIA. RECOMMEND FOLLOW UP UNTIL RESOLUTION. Job Number: [id number] [facility]
== END 2018-05-24 10:56 | disposition home or self-care (01) ==
LOC: ER 06:57
DX: E86.0 Dehydration (principal); R42 Dizziness and giddiness; R53.1 Weakness; R19.7 Diarrhea, unspecified; R22.41 Localized swelling, mass and lump, right lower limb; I10 Essential (primary) hypertension; C18.9 Malignant neoplasm of colon, unspecified; Z94.4 Liver transplant status
CPT/HCPCS: 71046; 80053; 81001; 83605; 83735; 83880; 84443; 84484; 85027; 96361; 96374; 96375; 99284; J2405; J7030

== ENCOUNTER 2018-05-28 10:11 | Emergency (ER) | payer MEDICARE, BC ==
--- NOTE | 2018-05-28 10:40 | Emergency Department Record ---
History of Present Illness - General Chief Complaint: Abdominal Pain Stated Complaint: SEVERE ABD PAIN/CHEMO PATIENT Time Seen by Provider: 05/28/18 10:32 Source: Patient, RN notes reviewed Mode of Arrival: Ambulatory - History of Present Illness Initial Comments: patient has abd pain and started 2 days ago and having regular BMs . Patient diagnosised with lymphoma March 2017 with a mass removed and one foot of intestine removed. Patient got her first chemo may 17 and she was sent to the ED by [facility] to check for sepsis and she has 5 more treatments of chemo. Checking blood twice a week and last blood draw and WBC is low per daughter. PMH liver transplant at [facility] 2003. Onset/Timin -: Days(s) Location: Diffuse Severity: Moderate Severity scale (1-10): 9 Quality: Cramping Consistency: Constant Improves With: Nothing Worsens With: Nothing Context: Other - Related Data Allergies Allergy/AdvReac Type Severity Reaction Status Date / Time ibuprofen [From Motrin] Allergy HYPERSENSIT Verified 05/28/18 10:17 IVITY NSAIDS (Non-Steroidal Allergy HYPERSENSIT Verified 05/28/18 10:17 Anti-Inflamma IVITY Travel Screening - Travel/Exposure Within Last 30 Days Have you traveled within the last 30 days?: No - Travel/Exposure Within Last Year Have you traveled outside the [place] in the last year?: No - Additonal Travel Details Have you been exposed to anyone with a communicable illness?: No - Travel Symptoms Symptom Screening: None Review of Systems Reviewed: No additional complaints except as noted below Constitutional: Reports: As per HPI. Denies: Chills, Fever, Malaise, Night sweats, Weakness, Weight change Eyes: Reports: As per HPI. Denies: Eye discharge, Eye pain, Photophobia, Vision change ENT: Reports: As per HPI. Denies: Congestion, Dental pain, Ear pain, Epistaxis , Hearing loss, Throat pain Respiratory: Reports: As per HPI. Denies: Cough, Dyspnea, Hemoptysis, Stridor, Wheezes Cardiovascular: Reports: As per HPI. Denies: Arrhythmia, Chest pain, Dyspnea on exertion, Edema, Murmurs, Orthopnea, Palpitations, Paroxysmal nocturnal dyspnea, Rheumatic Fever, Syncope Endocrine: Reports: As per HPI. Denies: Fatigue, Heat or cold intolerance, Polydipsia, Polyuria Gastrointestinal: Reports: As per HPI, Abdominal pain. Denies: Constipation, Diarrhea, Hematemesis, Hematochezia, Melena, Nausea, Vomiting Genitourinary: Reports: As per HPI. Denies: Abnormal menses, Discharge, Dyspareunia, Dysuria, Frequency, Hematuria, Incontinence, Retention, Urgency Musculoskeletal: Reports: As per HPI. Denies: Arthralgia, Back pain, Gout, Joint swelling, Myalgia, Neck pain Skin: Reports: As per HPI. Denies: Bruising, Change in color, Change in hair/ nails, Lesions, Pruritus, Rash Neurological: Reports: As per HPI. Denies: Abnormal gait, Confusion, Headache, Numbness, Paresthesias, Seizure, Tingling, Tremors, Vertigo, Weakness Psychiatric: Reports: As per HPI. Denies: Anxiety, Auditory hallucinations, Depression, Homicidal thoughts, Suicidal thoughts, Visual hallucinations Hematological/Lymphatic: Reports: As per HPI. Denies: Anemia, Blood Clots, Easy bleeding, Easy bruising, Swollen glands Past Medical History - SOCIAL HISTORY Smoking Status: Never smoker Alcohol Use: None Drug Use: None - RESPIRATORY Hx Respiratory Disorders: No - CARDIOVASCULAR Hx Cardio Disorders: Yes Hx Hypertension: Yes - NEURO Hx Neuro Disorders: No - GI Hx GI Disorders: Yes Hx Diverticulitis: Yes Hx Hiatal Hernia: Yes Hx Liver Disease: Yes (transplant) - Hx Genitourinary Disorders: No - ENDOCRINE Hx Endocrine Disorders: Yes Hx Thyroid Disease: Yes - MUSCULOSKELETAL Hx Musculoskeletal Disorders: Yes Hx Arthritis: Yes - PSYCH Hx Psych Problems: No - HEMATOLOGY/ONCOLOGY Hx Hematology/Oncology Disorders: Yes Hx Cancer: Yes (cancer) Hx Chemotherapy: Yes Hx Radiation Therapy: No Family Medical History Any Significant Family History?: Yes Hx Heart Disease: Father Physical Exam - General General Appearance: Alert, Oriented x3, Cooperative, No acute distress - Head Head exam: Normal inspection - Eye Eye exam: Normal appearance, PERRL Pupils: Normal accommodation - ENT ENT exam: Normal exam, Mucous membranes moist, Normal external ear exam, Normal orophraynx, TM's normal bilaterally Ear exam: Normal external inspection. negative: External canal tenderness Nasal Exam: Normal inspection. negative: Discharge, Sinus tenderness Mouth exam: Normal external inspection, Tongue normal Teeth exam: Normal inspection. negative: Dental caries Throat exam: Normal inspection. negative: Tonsillar erythema, Tonsillar exudate - Neck Neck exam: Normal inspection, Full ROM. negative: Tenderness - Respiratory Respiratory exam: Normal lung sounds bilaterally. negative: Respiratory distress - Cardiovascular Cardiovascular Exam: Regular rate, Normal rhythm, Normal heart sounds - GI/Abdominal GI/Abdominal exam: Soft, Normal bowel sounds, Tenderness (lower abd pain bilateral and soft ). negative: Guarding, Rebound, Rigid - Rectal Rectal exam: Deferred - exam: Deferred - Extremities Extremities exam: Normal inspection, Full ROM, Normal capillary refill. negative: Tenderness - Back Back exam: Reports: Normal inspection, Full ROM. Denies: Muscle spasm, Rash noted, Tenderness - Neurological Neurological exam: Alert, Normal gait, Oriented X3, Reflexes normal - Psychiatric Psychiatric exam: Normal affect, Normal mood - Skin Skin exam: Dry, Intact, Normal color, Warm Course Vital Signs 05/28/18 10:20 Temperature 97.9 F Pulse Rate 104 H Respiratory 20 Rate Blood Pressure 123/78 Pulse Ox 99 - Reevaluation(s) Reevaluation #1: 05/28/18 13:[address] Waldemar Ibanez ED who accepted the transfer Reevaluation #2: daughter would like to drive her to [facility]. Patient is stable 05/28/18 13:54 05/28/18 13:54 Medical Decision Making - Data Complexity MDM Data: Labs Ordered and/or Reviewed, X-Ray Ordered and/or Reviewed (CT abd shows sigmoid diverticultits , favorable response to lymphoma treatment) - Lab Data Result diagrams: 05/28/18 10:25 05/28/18 10:25 Disposition Clinical Impression: Diverticulitis, History of liver transplant Neutropenia Qualifiers: Neutropenia type: secondary to cancer chemotherapy Qualified Code(s): D70.1 - Agranulocytosis secondary to cancer chemotherapy; T45.1X5A - Adverse effect of antineoplastic and immunosuppressive drugs, initial encounter Abdominal pain Qualifiers: Abdominal location: lower abdomen, unspecified Qualified Code(s): R10.30 - Lower abdominal pain, unspecified Lymphoma Qualifiers: Lymphoma type: unspecified type Lymphoma site: intra-abdominal nodes Qualified Code(s): C85.93 - Non-Hodgkin lymphoma, unspecified, intra-abdominal lymph nodes Disposition: Acute Care Hospital Transfer Condition: (2) Stable Instructions: Abdominal Pain (ED) Additional Instructions: Go directly to [facility] ED Forms: Patient Portal Access Time of Disposition: 13:52 Quality - Quality Measures Quality Measures: N/A - Blood Pressure Screening Does Patient Have Any of the Following: No Blood Pressure Classification: Pre-Hypertensive BP Reading Systolic Measurement: 123 Diastolic Measurement: 78 Screening for High Blood Pressure: < Pre-Hypertensive BP, F/U Documented > [ G8950] Pre-Hypertensive Follow-up Interventions: Referral to alternative/primary care provider.
[2018-05-28 11:04] LABS: HEMATOCRIT 31.1 % (35.0-47.0); HEMOGLOBIN 9.7 gm/dl (11.6-16.0); MEAN CELL VOLUME 80.8 fl (81-97); MEAN CORPUSCULAR HGB CONC 31.2 g/dl (32-36); MEAN PLATELET VOLUME 10.8 fl (7.4-10.4); PLATELET COUNT 98 K/uL (130-400); RED BLOOD COUNT 3.85 M/uL (3.80-5.40)
[2018-05-28 11:13] LABS: MEAN CORPUSCULAR HEMOGLOBIN 25.1 pg (27-33); WHITE BLOOD COUNT W/O DIFF 0.5 K/uL (4.2-12.2)
[2018-05-28 11:14] LABS: BLOOD UREA NITROGEN 28 mg/dL (8-23); CREATININE 0.9 mg/dL (0.5-0.9); EST GLOMERULAR FILTRATION RATE > 60 mL/min; TOTAL PROTEIN 6.4 g/dL (6.6-8.7)
[2018-05-28 11:15] LABS: LIPASE 15 U/L (13-60)
[2018-05-28 11:16] LABS: GLUCOSE,RANDOM 141 mg/dL (74-109)
[2018-05-28 11:18] LABS: PLATELET ESTIMATE NORMAL (NORMAL)
[2018-05-28 11:19] LABS: ALBUMIN 3.9 g/dL (4.0-5.0); ALKALINE PHOSPHATASE 58 U/L (35-104); ALT/SGPT 27 U/L (<33); AST/SGOT 19 U/L (10.0-35.0)
[2018-05-28 11:20] LABS: BILIRUBIN,DIRECT < 0.2 mg/dL (0-0.3)
[2018-05-28 11:23] LABS: URINE APPEARANCE CLEAR; URINE BILIRUBIN NEGATIVE (NEGATIVE); URINE BLOOD NEGATIVE (NEGATIVE); URINE COLOR YELLOW; URINE GLUCOSE (UA) NEGATIVE (NEGATIVE); URINE KETONE NEGATIVE (NEGATIVE); URINE LEUKOCYTE ESTERASE NEGATIVE (NEGATIVE); URINE NITRITE NEGATIVE (NEGATIVE); URINE PROTEIN NEGATIVE (NEGATIVE); URINE UROBILINOGEN 0.2 E.U./dL (0.20 - 1.00)
[2018-05-28] MEDS ORDERED: CIPROFLOXACIN HCL 500 MG TABLET PO ONE (13:50)
[2018-05-28] MEDS ORDERED: METRONIDAZOLE 250 MG TABLET PO ONE (13:50)
--- NOTE | 2018-05-30 19:13 | RADIOLOGY REPORT ---
EXAM: CHEST 2 VIEWS HISTORY: MID ABDOMINAL PAIN. HISTORY OF LYMPHOMA. CHRONIC NAUSEA. TECHNIQUE: PA and lateral upright views of the chest were obtained. COMPARISON: 05/24/2018. FINDINGS: A right Jxelzo-I-Aibf catheter is in place and is unchanged. The heart is normal in size. There is calcification and mild tortuosity of the aorta. A small hiatal hernia is present. The mediastinum and pulmonary vasculature are otherwise normal. The previously noted atelectasis or infiltrate at the right lung base has resolved. There are no visible acute infiltrates currently. There is no pneumothorax or effusion. There is chronic compression within the upper thoracic spine. No acute osseous abnormalities are identified. IMPRESSION: NO ACUTE CHEST PATHOLOGY. J[facility]BER: [id number] [facility]
--- NOTE | 2018-05-30 19:24 | CT SCAN REPORT ---
EXAM: CT SCAN ABDOMEN/PELVIS WO CONTRAST HISTORY: MID ABDOMINAL PAIN WITH NAUSEA. ON CHEMOTHERAPY FOR LYMPHOMA. PREVIOUS LIVER TRANSPLANT. TECHNIQUE: Standard CT imaging of the abdomen and pelvis was performed without contrast. COMPARISON: 03/23/2018. FINDINGS: The lung bases are clear. A small hiatal hernia is present. Several small paraesophageal varices are also noted and appear stable. The liver parenchyma appears normal. Surgical clips are noted at the hepatic hilum. The gallbladder is surgically absent. There is no biliary ductal dilatation. The pancreas, spleen, and adrenal glands are normal. The previously noted retroperitoneal and mesenteric lymphadenopathy has decreased consistent with favorable response to therapy. No new lymphadenopathy is identified. Atherosclerotic changes are present within the aorta with no aneurysm. The kidneys and ureters appear normal. There are scattered diverticula within the sigmoid colon. There is abnormal wall thickening and fat stranding within the proximal sigmoid colon consistent with mild acute diverticulitis. There is no associated abscess or pneumoperitoneum. Postsurgical changes are present within the right lower quadrant consistent with previous bowel surgery. There is no acute obstruction. There is no pneumoperitoneum or ascites. Postsurgical changes are present within the anterior abdominal wall. There is a fat-containing left inguinal hernia. The uterus is surgically absent. The urinary bladder is normal. Degenerative changes are present within the spine. No acute osseous abnormalities are identified. There is no visible osteoblastic or osteolytic process. IMPRESSION: 1. SIGMOID DIVERTICULITIS WITH NO EVIDENCE FOR ABSCESS OR PNEUMOPERITONEUM. 2. DECREASING RETROPERITONEAL AND MESENTERIC LYMPHADENOPATHY CONSISTENT WITH FAVORABLE RESPONSE TO THERAPY. 3. SMALL HIATAL HERNIA. 4. FAT-CONTAINING LEFT INGUINAL HERNIA. 5. ADDITIONAL STABLE CHRONIC FINDINGS, ABOVE. [facility]: [id number] [facility]
== END 2018-05-28 14:33 | disposition short-term general hospital (02) ==
LOC: ER 10:11
DX: K57.32 Diverticulitis of large intestine without perforation or abscess without bleeding (principal); D70.1 Agranulocytosis secondary to cancer chemotherapy; T45.1X5A Adverse effect of antineoplastic and immunosuppressive drugs, initial encounter; I10 Essential (primary) hypertension; Z94.4 Liver transplant status
CPT/HCPCS: 71046; 74176; 80048; 80076; 81003; 83690; 85027; 99285

== ENCOUNTER 2018-08-16 19:20 | Emergency (ER) | payer MEDICARE, BC ==
[2018-08-16] MEDS ORDERED: ONDANSETRON HCL IV 4 MG/2 ML VIAL IVP ONE (19:39)
[2018-08-16] MEDS ORDERED: MORPHINE SULFATE 10MG/1ML **1ML VIAL IVP ONE (19:39)
[2018-08-16] MEDS ORDERED: 0.9 % SODIUM CHLORIDE 1000ML 1,000 ML IV SCH (19:45)
[2018-08-16] MEDS ORDERED: HYOSCYAMINE SULFATE ODT 0.125 MG TAB.SUBL SL ONE (19:47)
--- NOTE | 2018-08-16 19:51 | Emergency Department Record ---
History of Present Illness - General Chief Complaint: Abdominal Pain Stated Complaint: STOMACH CRAMPS Time Seen by Provider: 08/16/18 19:38 Source: Patient Mode of Arrival: Ambulatory Limitations: No limitations - History of Present Illness Initial Comments: 83 yo female presents to ED for evaluation of LLQ pain that began this morning. Patient reports a history of diverticulitis, reports similar symptoms following her 1st round of chemotherapy earlier this year. Patient reports that she was diagnosed with colon cancer early this year, was transferred to [facility] where she underwent partial bowel resection and has been receiving chemo since that time. Patient reports she underwent her 5th round of chemo 48 hours ago. Patient also reports history of liver transplantation. Patient reports mild loose stools, denies nausea, vomiting, fevers, or chills. Patient denies blood in the stool. MD Complaint: Abdominal pain Onset/Timin -: Hour(s) Location: LLQ Severity: Severe Severity scale (1-10): 10 Quality: Cramping Consistency: Constant Improves With: Nothing Worsens With: Nothing Associated Symptoms: Denies other symptoms - Related Data Patient : No Home Medications Medication Instructions Recorded Confirmed Last Taken Azelastine HCl [Astepro] 1 spray NS BID 08/16/18 08/16/18 Unknown Cetirizine HCl [Zyrtec] 10 mg PO DAILY 08/16/18 08/16/18 Unknown Docusate Sodium [Colace] 100 mg PO BID 08/16/18 08/16/18 Unknown Loratadine/Pseudoephedrine 1 tab PO DAILY 08/16/18 08/16/18 Unknown [Claritin-D 24 Hour Tablet] Magnesium Oxide [Magnesium] 800 mg PO BID 08/16/18 08/16/18 Unknown Melatonin 3 mg PO QHS PRN 08/16/18 08/16/18 Unknown Omeprazole [Prilosec] 20 mg PO DAILY 08/16/18 08/16/18 Unknown Pentamidine Isethionate 300 mg IJ ASDIR 08/16/18 08/16/18 07/23/18 Prochlorperazine Maleate 10 mg PO Q6H PRN 08/16/18 08/16/18 Unknown [Compazine] Sennosides [Senna] 8.6 mg PO BID 08/16/18 08/16/18 Unknown Previous Rx's Medication Instructions Recorded Ciprofloxacin HCl [Cipro] 500 mg PO Q12HR #19 tablet 08/16/18 Hyoscyamine Sulfate [Levsin-Sl] 0.25 mg SL Q8H PRN #15 tab.subl 08/16/18 Metronidazole [Flagyl] 500 mg PO TID #29 tablet 08/16/18 Allergies Allergy/AdvReac Type Severity Reaction Status Date / Time ibuprofen [From Motrin] Allergy HYPERSENSIT Verified 05/28/18 10:17 IVITY NSAIDS (Non-Steroidal Allergy HYPERSENSIT Verified 05/28/18 10:17 Anti-Inflamma IVITY Travel Screening - Travel/Exposure Within Last 30 Days Have you traveled within the last 30 days?: No - Travel Symptoms Symptom Screening: None Review of Systems Constitutional: Denies: Chills, Fever, Malaise, Night sweats Eyes: Denies: Eye discharge, Eye pain ENT: Denies: Congestion, Ear pain, Epistaxis Respiratory: Denies: Cough, Dyspnea Cardiovascular: Denies: Chest pain, Dyspnea on exertion Endocrine: Denies: Fatigue, Heat or cold intolerance Gastrointestinal: Reports: Abdominal pain, Diarrhea. Denies: Constipation, Nausea, Vomiting Genitourinary: Denies: Incontinence, Retention Musculoskeletal: Denies: Arthralgia, Back pain Skin: Denies: Bruising, Change in color Neurological: Denies: Abnormal gait, Confusion, Headache, Seizure Psychiatric: Denies: Anxiety Hematological/Lymphatic: Denies: Anemia, Blood Clots Past Medical History - SOCIAL HISTORY Smoking Status: Never smoker - RESPIRATORY Hx Respiratory Disorders: Yes Comment:: seasonal allergies - CARDIOVASCULAR Hx Cardio Disorders: Yes Hx Hypertension: Yes - NEURO Hx Neuro Disorders: No - GI Hx GI Disorders: Yes Hx Diverticulitis: Yes Hx Hiatal Hernia: Yes Hx Liver Disease: Yes (transplant) - Hx Genitourinary Disorders: Yes Hx Kidney Stones: Yes (renal insufficiency) - ENDOCRINE Hx Endocrine Disorders: Yes Hx Thyroid Disease: Yes - MUSCULOSKELETAL Hx Musculoskeletal Disorders: Yes Hx Arthritis: Yes - PSYCH Hx Psych Problems: No - HEMATOLOGY/ONCOLOGY Hx Hematology/Oncology Disorders: Yes Hx Cancer: Yes (cancer) Hx Chemotherapy: Yes Hx Radiation Therapy: No Family Medical History Any Significant Family History?: Yes Hx Heart Disease: Father Physical Exam - General General Appearance: Alert, Oriented x3, Cooperative, Mild distress Limitations: No limitations - Head Head exam: Atraumatic, Normocephalic, Normal inspection Head exam detail: negative: Abrasion, Contusion, Ro's sign, General tenderness, Hematoma, Laceration - Eye Eye exam: Normal appearance. negative: Conjunctival injection, Periorbital swelling, Periorbital tenderness, Scleral icterus - ENT Ear exam: negative: Auricular hematoma, Auricular trauma Nasal Exam: negative: Active bleeding, Discharge, Dried blood, Foreign body Mouth exam: negative: Drooling, Laceration, Muffled voice, Tongue elevation - Neck Neck exam: Normal inspection. negative: Meningismus, Tenderness - Respiratory Respiratory exam: Normal lung sounds bilaterally. negative: Rales, Respiratory distress, Rhonchi, Stridor - Cardiovascular Cardiovascular Exam: Regular rate, Normal rhythm, Normal heart sounds - GI/Abdominal GI/Abdominal exam: Soft, Tenderness, Other (Well-healed scar in jose [place]in midline or the abdomen, TTP LLQ with guarding present, no peritoneal signs or rebound present.). negative: Rebound, Rigid - Rectal Rectal exam: Deferred - exam: Deferred - Extremities Extremities exam: Normal inspection. negative: Pedal edema, Tenderness - Back Back exam: Denies: CVA tenderness (R), CVA tenderness (L) - Neurological Neurological exam: Alert, Normal gait, Oriented X3 - Psychiatric Psychiatric exam: Normal affect, Normal mood - Skin Skin exam: Normal color. negative: Abrasion Type of lesion: negative: abrasion Course Vital Signs 08/16/18 19:29 Temperature 98.4 F Pulse Rate 100 H Respiratory 14 Rate Blood Pressure 120/67 Pulse Ox 93 L - Reevaluation(s) Reevaluation #1: 08/16/18 20:05 Laboratory studies were reviewed and are grossly unremarkable except for the following: WBC 46.8 (previous 07/05 75K with return to normal by 07/07) Hgb 8.6/HCT 27. Reevaluation #2: 08/16/18 20:26 recent Progress Note from patient's Oncologist (Dr. Powell) reviewed: Patient received Neulasta following Chemo completion, Hgb 7.6 08/13. Reevaluation #3: 08/16/18 20:53 Patient reassessed, reports pain greatly improved. CT imaging is pending at this time. Reevaluation #4: 08/16/18 21:21 CT Abdomen and Pelvis: Large thrombus SMV and it's branches Divericulitis proximal sigmoid colon Small amount FF pelvis Patient was updated on all results, will initiate transfer to [facility] at this time. Heparin 5000 unite bolus ordered to be given, followed by drip at 18 units/kg/hour. 08/16/18 21:33 Case was discussed with ED provider at [facility], will accept the patient in transfer for further evaluation. Medical Decision Making - Lab Data Result diagrams: 08/16/18 19:43 08/16/18 19:43 Critical Care Time Critical Care Time: Yes Total Critical Care Time: 45 Critical Care Time: Diagnosis and treatment for acute diverticulitis, SMV thrombus, initiation of an ticoagulation and antibiotics, review of patient's recent records from [facility], laboratory and CT imaging interpretation, facilitating transfer to [facility] for further evaluation, reassessments, and discussion with the patient re: all results and plan of care to transfer to [facility]. Disposition Disposition: Transfer Clinical Impression: Diverticulitis, History of liver transplant, Superior vena cava thrombosis Lymphoma Qualifiers: Lymphoma type: unspecified type Lymphoma site: neck Qualified Code(s): C85.91 - Non-Hodgkin lymphoma, unspecified, lymph nodes of head, face, and neck Abdominal pain Qualifiers: Abdominal location: left lower quadrant Qualified Code(s): R10.32 - Left lower quadrant pain Disposition: Home, Self-Care Transfer To: [facility] Reason For Transfer: Hematology consultation Accepting Physician: ED attending (Ivy) Time Discussed w/Accepting Physician: 21:20 Condition: (2) Stable Instructions: Diverticulitis (ED) Additional Instructions: Return to ED if your symptoms worsen or if you have any concerns. Cipro, Flagyl, and Levsin as directed. Follow-up with your family doctor in 1-3 days as directed. Prescriptions: Ciprofloxacin HCl [Cipro] 500 mg PO Q12HR #19 tablet Metronidazole [Flagyl] 500 mg PO TID #29 tablet Hyoscyamine Sulfate [Levsin-Sl] 0.25 mg SL Q8H PRN #15 tab.subl PRN Reason: Abdominal Pain Forms: Patient Portal Access Time of Disposition: 21:33 Quality - Quality Measures Quality Measures: N/A - Blood Pressure Screening Does Patient Have Any of the Following: Active Dx of HTN Blood Pressure Classification: Pre-Hypertensive BP Reading Systolic Measurement: 120 Diastolic Measurement: 67 Screening for High Blood Pressure: Patient Exclusion, Hx of HTN [L1051]
[2018-08-16 19:52] LABS: BASO % 0.2 % (0-6); EOS % 0.1 % (0-6); HEMATOCRIT 27.2 % (35.0-47.0); HEMOGLOBIN 8.6 gm/dl (11.6-16.0); LYMPH % 1.1 % (16-45); MEAN CORPUSCULAR HGB CONC 31.6 g/dl (32-36); MEAN PLATELET VOLUME 9.5 fl (7.4-10.4); MONO % 0.1 % (0-9); PLATELET COUNT 142 K/uL (130-400); RED BLOOD COUNT 2.99 M/uL (3.80-5.40); RED CELL DISTRIBUTION WIDTH 20.6 % (11.5-14.5)
[2018-08-16 19:59] LABS: MEAN CORPUSCULAR HEMOGLOBIN 28.7 pg (27-33)
[2018-08-16 20:01] LABS: WHITE BLOOD COUNT W/O DIFF 46.8 K/uL (4.2-12.2)
[2018-08-16 20:02] LABS: BLOOD UREA NITROGEN 38 mg/dL (8-23); CREATININE 0.9 mg/dL (0.5-0.9); EST GLOMERULAR FILTRATION RATE > 60 mL/min; LIPASE 9 U/L (13-60); TOTAL PROTEIN 5.4 g/dL (6.6-8.7)
[2018-08-16 20:04] LABS: GLUCOSE,RANDOM 181 mg/dL (74-109)
[2018-08-16 20:07] LABS: ALB/GLOB RATIO 2.4 (1.1-1.8); ALBUMIN 3.8 g/dL (4.0-5.0); ALKALINE PHOSPHATASE 84 U/L (35-104); ALT/SGPT 15 U/L (<33); AST/SGOT 11 U/L (10.0-35.0)
[2018-08-16 20:17] LABS: ABSOLUTE NEUTROPHIL COUNT 43.51; ANISOCYTOSIS 3+; MICROCYTOSIS 1+; PLATELET ESTIMATE NORMAL (NORMAL); POIKILOCYTOSIS 1+
[2018-08-16] MEDS ORDERED: METRONIDAZOLE 250 MG TABLET PO ONE (20:49)
[2018-08-16] MEDS ORDERED: CIPROFLOXACIN HCL 500 MG TABLET PO ONE (20:49)
[2018-08-16] MEDS ORDERED: HEPARIN SODIUM 1000 UNIT/1 ML 10ML VIAL IVP ONE (21:26)
[2018-08-16] MEDS ORDERED: HEPARIN SODIUM/D5W 25,000 UNITS/500 ML BAG IV SCH (21:30)
--- NOTE | 2018-08-18 12:51 | CT SCAN REPORT ---
EXAM: CT OF THE ABDOMEN AND PELVIS WITH CONTRAST HISTORY: ABDOMINAL PAIN SINCE 08:00 TODAY. COLON CARCINOMA HISTORY STATUS POST RESECTION AND CHEMOTHERAPY. LIVER TRANSPLANT HISTORY. STATUS POST HYSTERECTOMY. TECHNIQUE: Contrast enhanced helical CT examination of the abdomen and pelvis was performed with 100 ml of Omnipaque 300 utilized. Delayed images through the kidneys are obtained. Oral contrast was not utilized limiting evaluation of bowel. Comparison: CT abdomen and pelvis without contrast dated 05/28/18. FINDINGS: Minor linear scarring versus atelectasis within the anterior left lung base. Minor patchy opacities in the dependent lung base bilaterally consistent with atelectasis or less likely infiltrate. No pleural or pericardial effusion. The heart is not enlarged. There is atherosclerotic calcification of the visualized portions of the mid to distal right coronary artery. Moderate paraesophageal varices are present and there is again noted varices within the upper abdomen with a prominent portal vein. There is evidence of thrombosis of the inferior aspect of the superior mesenteric vein and several of its branches. No new focal abnormality demonstrated within the liver, spleen, pancreas, nor adrenal glands. Too small to characterize hypodense lesions are again noted scattered within each kidney. These are nonspecific, but likely cysts. No evidence of obstructive uropathy. The gallbladder is surgically absent. No gross biliary ductal dilatation. No new intraabdominal nor retroperitoneal lymphadenopathy. There is diffuse atherosclerosis of the thoracic aorta and iliac arteries without aneurysmal dilatation. The uterus is surgically absent. No new pelvic mass nor adenopathy. There is a small amount of free fluid in the dependent pelvis. No intrinsic urinary bladder abnormality. Fat density prominence is again noted within each inguinal canal, left greater than right consistent with small fat filled inguinal hernia sacs. An enterocolic anastomosis is again suggested in the right lower quadrant. No new gross bowel dilatation nor bowel wall thickening. There is diverticulosis scattered throughout the colon most pronounced in the sigmoid region where it is moderate in degree. There is questionable minor fat stranding in the mesentery adjacent to the proximal sigmoid colon. Minor inflammatory change is possible. This , however, appears less pronounced than the inflammatory changes previously demonstrated in the distal descending colon. No free intraperitoneal air. A small sliding type hiatal hernia is again suspected. Perineural cysts are again suggested at the S2 level, left greater than right, not significantly changed. No definite new lytic or blastic bone lesion. A hemangioma is again noted within the right aspect of the T10 vertebral body, incompletely imaged. IMPRESSION: 1. EXTENSIVE VARICES REDEMONSTRATED IN THE UPPER ABDOMEN WELL VARICES IN THE DISTAL PARAESOPHAGEAL REGION SUSPICIOUS FOR PORTAL HYPERTENSION. 2. THERE IS EVIDENCE OF THROMBUS OF THE INFERIOR ASPECT OF THE SUPERIOR MESENTERIC VEIN WELL SEVERAL BRANCHES. THIS IS LIKELY ACUTE. NO DEFINITE ASSOCIATED GROSS BOWEL DILATATION NOR BOWEL WALL THICKENING. NO EXTRALUMINAL AIR. 3. DIVERTICULOSIS SCATTERED THROUGHOUT THE COLON. QUESTIONABLE MINOR FAT STRANDING ADJACENT TO THE PROXIMAL SIGMOID COLON IN THE LEFT LOWER QUADRANT. MILD INFLAMMATORY CHANGE NOT EXCLUDED. 4. FAT DENSITY PROMINENCE REDEMONSTRATED IN EACH INGUINAL CANAL CONSISTENT WITH SMALL FAT FILLED INGUINAL HERNIAS, LEFT GREATER THAN RIGHT. 5. ENTEROCOLIC ANASTOMOSIS REDEMONSTRATED IN THE RIGHT LOWER QUADRANT. 6. STATUS POST CHOLECYSTECTOMY AND HYSTERECTOMY. 7. NOT MENTIONED ABOVE IS MILD SPLENOMEGALY. 8. BILATERAL RENAL CYSTS AGAIN SUSPECTED. MINOR PATCHY OPACITIES IN THE DEPENDENT LUNG BASES CONSISTENT WITH ATELECTASIS OR LESS LIKELY INFILTRATE. JOB NUMBER: [id number] [facility]
== END 2018-08-16 22:00 | disposition home or self-care (01) ==
LOC: ER 19:20
DX: I82.210 Acute embolism and thrombosis of superior vena cava (principal); K57.32 Diverticulitis of large intestine without perforation or abscess without bleeding; C18.9 Malignant neoplasm of colon, unspecified; C85.91 Non-Hodgkin lymphoma, unspecified, lymph nodes of head, face, and neck; R10.32 Left lower quadrant pain; I10 Essential (primary) hypertension; Z94.4 Liver transplant status
CPT/HCPCS: 99291 ×2; 96365; 96375; 83690; 80053; 85027; 74177; Q9967; J1980; J7030

== ENCOUNTER 2019-01-14 12:17 | Emergency (ER) | payer MEDICARE, BC ==
[2019-01-14] MEDS ORDERED: 0.9 % SODIUM CHLORIDE 1,000 ML BAG IV ONE (13:06)
--- NOTE | 2019-01-14 13:16 | Emergency Department Record ---
History of Present Illness - General Chief Complaint: Abdominal Pain Stated Complaint: ABD PAIN,NAUSEA Time Seen by Provider: 01/14/19 13:04 Source: Patient Mode of Arrival: Ambulatory - History of Present Illness Initial Comments: The patient has had left sided AP since yesterday which has increased today. She also has intermittent nausea without vomiting. She is scheduled for a colonoscopy this Wednesday to attempt to diagnose a "spot on her colon." She doesn't know if it is recurrence of her lymphoma in her GI tract or if it is diverticulitis again. She also has a history of Clostridia difficele. MD Complaint: Abdominal pain Onset/Timin -: Days(s) Radiation: LLQ Severity scale (1-10): 8 Quality: Aching Consistency: Constant Improves With: Nothing Worsens With: Nothing - Related Data Allergies Allergy/AdvReac Type Severity Reaction Status Date / Time ibuprofen [From Motrin] Allergy HYPERSENSIT Verified 05/28/18 10:17 IVITY NSAIDS (Non-Steroidal Allergy HYPERSENSIT Verified 05/28/18 10:17 Anti-Inflamma IVITY Travel Screening - Travel/Exposure Within Last 30 Days Have you traveled within the last 30 days?: No - Travel/Exposure Within Last Year Have you traveled outside the [place] in the last year?: No - Additonal Travel Details Have you been exposed to anyone with a communicable illness?: No - Travel Symptoms Symptom Screening: None Review of Systems Reviewed: No additional complaints except as noted below Constitutional: Reports: As per HPI. Denies: Chills, Fever, Malaise, Night sweats, Weakness, Weight change Eyes: Reports: As per HPI. Denies: Eye discharge, Eye pain, Photophobia, Vision change ENT: Reports: As per HPI. Denies: Congestion, Dental pain, Ear pain, Epistaxis, Hearing loss, Throat pain Respiratory: Reports: As per HPI. Denies: Cough, Dyspnea, Hemoptysis, Stridor, Wheezes Cardiovascular: Reports: As per HPI. Denies: Arrhythmia, Chest pain, Dyspnea on exertion, Edema, Murmurs, Orthopnea, Palpitations, Paroxysmal nocturnal dyspnea, Rheumatic Fever, Syncope Endocrine: Reports: As per HPI. Denies: Fatigue, Heat or cold intolerance, Polydipsia, Polyuria Gastrointestinal: Reports: As per HPI. Denies: Abdominal pain, Constipation, Diarrhea, Hematemesis, Hematochezia, Melena, Nausea, Vomiting Genitourinary: Reports: As per HPI. Denies: Abnormal menses, Discharge, Dyspareunia, Dysuria, Frequency, Hematuria, Incontinence, Retention, Urgency Musculoskeletal: Reports: As per HPI. Denies: Arthralgia, Back pain, Gout, Joint swelling, Myalgia, Neck pain Skin: Reports: As per HPI. Denies: Bruising, Change in color, Change in hair/nails, Lesions, Pruritus, Rash Neurological: Reports: As per HPI. Denies: Abnormal gait, Confusion, Headache, Numbness, Paresthesias, Seizure, Tingling, Tremors, Vertigo, Weakness Psychiatric: Reports: As per HPI. Denies: Anxiety, Auditory hallucinations, Depression, Homicidal thoughts, Suicidal thoughts, Visual hallucinations Hematological/Lymphatic: Reports: As per HPI. Denies: Anemia, Blood Clots, Easy bleeding, Easy bruising, Swollen glands Past Medical History - SOCIAL HISTORY Smoking Status: Never smoker Alcohol Use: None Drug Use: None - RESPIRATORY Hx Respiratory Disorders: Yes Comment:: seasonal allergies - CARDIOVASCULAR Hx Cardio Disorders: Yes Hx Hypertension: Yes - NEURO Hx Neuro Disorders: No - GI Hx GI Disorders: Yes Hx Diverticulitis: Yes Hx Hiatal Hernia: Yes Hx Liver Disease: Yes (transplant) - Hx Genitourinary Disorders: Yes Hx Kidney Stones: Yes (renal insufficiency) - ENDOCRINE Hx Endocrine Disorders: Yes Hx Thyroid Disease: Yes - MUSCULOSKELETAL Hx Musculoskeletal Disorders: Yes Hx Arthritis: Yes - PSYCH Hx Psych Problems: No - HEMATOLOGY/ONCOLOGY Hx Hematology/Oncology Disorders: Yes Hx Cancer: Yes (cancer) Hx Chemotherapy: Yes Hx Radiation Therapy: No Family Medical History Any Significant Family History?: No Hx Heart Disease: Father Physical Exam - General General Appearance: Alert, Oriented x3, Cooperative, Mild distress - Head Head exam: Normal inspection (wearing a head turban tocover her hair) - Eye Eye exam: Normal appearance, PERRL, EOMI. negative: Conjunctival injection, Nystagmus Pupils: Normal accommodation - ENT ENT exam: Normal exam, Mucous membranes moist, Normal external ear exam, Normal orophraynx, TM's normal bilaterally Ear exam: Normal external inspection. negative: External canal tenderness Nasal Exam: Normal inspection. negative: Discharge, Sinus tenderness Mouth exam: Normal external inspection, Tongue normal Teeth exam: Normal inspection. negative: Dental caries Throat exam: Normal inspection. negative: Tonsillar erythema, Tonsillar exudate - Neck Neck exam: Normal inspection, Full ROM. negative: Lymphadenopathy, Meningismus, Tenderness - Respiratory Respiratory exam: Normal lung sounds bilaterally, Chest wall tenderness (central port to her right upper chest, not tender). negative: Respiratory distress - Cardiovascular Cardiovascular Exam: Regular rate, Normal rhythm, Normal heart sounds - GI/Abdominal GI/Abdominal exam: Soft, Normal bowel sounds, Tenderness (mold to moderate left sided abdominal tenderness of palpation) - Rectal Rectal exam: Deferred - exam: Deferred - Extremities Extremities exam: Normal inspection, Full ROM, Normal capillary refill. negative: Calf tenderness, Pedal edema, Tenderness - Back Back exam: Reports: Normal inspection, Full ROM. Denies: Muscle spasm, Rash noted, Tenderness - Neurological Neurological exam: Alert, Normal gait, Oriented X3, Reflexes normal - Psychiatric Psychiatric exam: Normal affect, Normal mood - Skin Skin exam: Dry, Intact, Normal color, Warm Course Vital Signs 01/14/19 12:45 Temperature 97.7 F Pulse Rate 72 Respiratory 16 Rate Blood Pressure 132/83 Pulse Ox 99 - Reevaluation(s) Reevaluation #1: The patient was returned from CT scan in no distress. She once again declined nausea medication or pain medication. 01/14/19 15:38 Reevaluation #2: All results discussed. CT scan report reviewed and patient was given a copy. She will ask her GI physician if she still needs the colonoscopy she is scheduled for this Wednesday. She is to begin with clear liquids and advance diet only if she tolerates advancing. All questions answered. Patient is ready for DC. 01/14/19 16:42 Medical Decision Making - Management Options MDM Management: No Additional Work-up Planned - Data Complexity MDM Data: Labs Ordered and/or Reviewed, X-Ray Ordered and/or Reviewed (CT abd/pelvis with contrast:moderate to sever uncomplicated diverticulosis of the left colon. Extensive upper abdominal varices and extending along the distal esohagusinthe posterior mediastinum. SMV thrombosis seen on pror stupy appears nearly completely resolved in the interval.Other chronic changes in full report. Per radiologist.) - Lab Data Result diagrams: 01/14/19 13:29 01/14/19 13:29 Disposition Disposition: Discharge Clinical Impression: Diverticulosis large intestine w/o perforation or abscess w/o bleeding Disposition: Home, Self-Care Condition: (1) Good Instructions: Abdominal Pain (ED) Additional Instructions: Home with family member. Clear liquids and advance diet as tolerates. Continue present medications. Follow up with your PCP and oncology and GI doctors as previously arranged. Quality - Quality Measures Quality Measures: N/A - Blood Pressure Screening Does Patient Have Any of the Following: No Blood Pressure Classification: Pre-Hypertensive BP Reading Systolic Measurement: 132 Diastolic Measurement: 83 Screening for High Blood Pressure: Patient Exclusion, Hx of HTN [G9744]
[2019-01-14 14:07] LABS: BILIRUBIN,TOTAL 0.3 mg/dL (0.2-1.0)
[2019-01-14 14:08] LABS: ABSOLUTE NEUTROPHIL COUNT 2.94; BASO % 0.5 % (0-6); EOS % 1.4 % (0-6); GRAN % 68.6 % (47-80); HEMATOCRIT 39.1 % (35.0-47.0); LYMPH % 17.8 % (16-45); MEAN CELL VOLUME 90.1 fl (81-97); MEAN CORPUSCULAR HEMOGLOBIN 27.6 pg (27-33); MEAN CORPUSCULAR HGB CONC 30.7 g/dl (32-36); MEAN PLATELET VOLUME 10.2 fl (7.4-10.4); MONO % 11.7 % (0-9); PLATELET COUNT 144 K/uL (130-400); RED BLOOD COUNT 4.34 M/uL (3.80-5.40); TOTAL PROTEIN 6.8 g/dL (6.6-8.7); WHITE BLOOD COUNT W/O DIFF 4.3 K/uL (4.2-12.2)
[2019-01-14 14:13] LABS: ALB/GLOB RATIO 2.8 (1.1-1.8)
[2019-01-14 14:26] LABS: URINE APPEARANCE CLEAR; URINE BILIRUBIN NEGATIVE (NEGATIVE); URINE BLOOD NEGATIVE (NEGATIVE); URINE COLOR YELLOW; URINE GLUCOSE (UA) NEGATIVE (NEGATIVE); URINE KETONE NEGATIVE (NEGATIVE); URINE LEUKOCYTE ESTERASE NEGATIVE (NEGATIVE); URINE NITRITE NEGATIVE (NEGATIVE); URINE PROTEIN NEGATIVE (NEGATIVE); URINE UROBILINOGEN 0.2 E.U./dL (0.20 - 1.00)
--- NOTE | 2019-01-14 16:24 | CT SCAN REPORT ---
EXAMINATION: CT Abdomen and Pelvis with IV Contrast EXAM DATE: 01/14/2019 3:44 PM TECHNIQUE: CT imaging of the abdomen and pelvis was performed with intravenous contrast. Coronal and sagittal images were reconstructed. IV Contrast: The amount and type of contrast are recorded in the medical record. INDICATION: cancer in abdomen; L sided AP. COMPARISON: CT abdomen pelvis: 08/16/2018, 05/28/2018, 10/07/2017 ENCOUNTER: Not applicable CT ABDOMEN AND PELVIS FINDINGS: Lung Bases: There is mild lingular atelectasis or scarring at the lung base which is stable. Hepatobiliary: The liver has a normal size with a smooth surface. There is no focal hepatic mass. The hepatic and portal veins appear patent. The main portal vein measures 20 mm in diameter. The SMV is prominent. There are prominent upper abdominal varices.The gallbladder is absent. There is no biliar y dilatation. Pancreas: Mild to moderate pancreatic atrophy. Spleen: The spleen measures 14.6 cm in craniocaudal dimension. Adrenals: The adrenal glands are normal. Kidneys, Ureters, & Bladder: Both kidneys have a normal size and there is no hydronephrosis. There ar e couple of tiny left renal cortical cysts. Both ureters have a normal caliber and the urinary bladde r is unremarkable. Gastrointestinal: The stomach is mostly collapsed. Small bowel loops are normal in caliber. The appen alondra is not identified. There is an enterocolonic anastomosis in the right abdomen. There is some air and stool in colon. There is moderate diverticulosis of the descending colon and proximal aspect the sigmoid colon and moderate to severe diverticulosis of the distal sigmoid colon. There is some wall thickening which appears chronic and likely representing some muscular hypertrophy. There is no obvio us acute inflammation. Reproductive Organs: Unremarkable Lymphatic System: There is no adenopathy within the abdomen or pelvis. Vasculature: Normal caliber abdominal aorta. Mild to moderate atherosclerotic calcifications are not ed. Peritoneum: There is a small amount of fluid in the left pelvis. Abdominal Wall & Musculoskeletal: Fat-containing inguinal hernias. Postsurgical changes along the ant erior abdominal wall. IMPRESSION: 1. Extensive upper abdominal varices and extending along the distal esophagus in the posterior medias tinum. SMV thrombosis seen on the most recent study appears nearly completely resolved in the interva l. 2. Borderline splenomegaly. 3. Intact enterocolonic anastomosis in the right abdomen. 4. Moderate to severe uncomplicated diverticulosis of the left colon. 5. Minimal left pelvic fluid is nonspecific. Dictated by: Cristhian Macdonald MD on 01/14/2019 4:10 PM. .
== END 2019-01-14 16:52 | disposition home or self-care (01) ==
LOC: ER 12:17
DX: K57.30 Diverticulosis of large intestine without perforation or abscess without bleeding (principal); R11.0 Nausea; I10 Essential (primary) hypertension
CPT/HCPCS: 74177; 80053; 81003; 83690; 85025; 99284; J7030